=== PATIENT | male | born 1960 | race Caucasian/White ===

== ENCOUNTER 2019-10-30 07:55 | Day surgery (SDC) | payer BC ==
[2019-10-23 15:21] VITALS: BMI 41.5
[~2019-10-30 07:55] MED LIST: LACTATED RINGERS 1,000 ML IV SCH; LIDOCAINE 1% 20 ML VIAL (10MG/ML) FOR IV START INTRADERMA PRN
--- NOTE | 2019-10-30 08:09 | P.GSHP ---
History of Present Illness H&P Date: 10/30/19 CHIEF COMPLAINT: Colon screen HISTORY OF PRESENT ILLNESS: The patient is a 59-year-old male who presents for colon screen. Lower endoscopy was offered for further evaluation and management. PAST MEDICAL HISTORY: Please see list. PAST SURGICAL HISTORY: Please see list. MEDICATIONS: Please see list. ALLERGIES: Please see list. SOCIAL HISTORY: No illicit drug use FAMILY HISTORY: No reports of Crohn disease or ulcerative colitis. REVIEW OF ORGAN SYSTEMS: CONSTITUTIONAL: No reports of fevers or chills. PHYSICAL EXAM: VITAL SIGNS: Stable GENERAL: Well-developed pleasant in no acute distress. HEENT: No scleral icterus. Extraocular movements grossly intact. Moist buccal mucosa. NECK: Supple without lymphadenopathy. CHEST: Unlabored respirations. Equal bilateral excursions. CARDIOVASCULAR: Regular rate and rhythm. Distal 2+ pulses. ABDOMEN: Soft, nontender, nondistended. MUSCULOSKELETAL: No clubbing, cyanosis, or edema. ASSESSMENT: 1. Colon screen. PLAN: 1. Recommend proceeding with a lower endoscopy Past Medical History Past Medical History: Coronary Artery Disease (CAD) Additional Past Medical History / Comment(s): hodgkins lymphoma x2, with metastatic lesions History of Any Multi-Drug Resistant Organisms: None Reported Past Surgical History: Ear Surgery Additional Past Surgical History / Comment(s): Stem cell transplant 2013, abdomInal surgery 2009-BIOPSIES, COLONOSCOPY Past Anesthesia/Blood Transfusion Reactions: No Reported Reaction Smoking Status: Former smoker - Past Family History Mother Additional Family Medical History / Comment(s): open heart with stents 2012 Medications and Allergies Home Medications Medication Instructions Recorded Confirmed Type No Known Home Medications 10/23/19 10/23/19 History Allergies Allergy/AdvReac Type Severity Reaction Status Date / Time furosemide [From Lasix] Allergy Rash/Hives Verified 10/23/19 15:08
[2019-10-30 08:14] VITALS: TEMP 98
[2019-10-30] MEDS ORDERED: PROPOFOL 10 MG/ML 20 ML VIAL IV ONE (08:46)
--- NOTE | 2019-10-30 09:35 | P.PCN ---
Date of Procedure: 10/30/19 Description of Procedure: PREOPERATIVE DIAGNOSIS: Personal history of colon polyps. Colonoscopy screening POSTOPERATIVE DIAGNOSIS: Personal history of colon polyps. Colonoscopy screening Multiple tubular adenomas throughout the colon. External hemorrhoids, grade 2. Sigmoid diverticulosis OPERATION: Colonoscopy to the ileocecal valve and appendiceal orifice. Colonoscopy with multiple hot snare polypectomies Colonoscopy with multiple cold forceps biopsies. SURGEON: Angela Grace MD. ANESTHESIA: MAC. INDICATIONS: The patient is a 59-year-old male who presents for colonoscopy screening. Last colonoscopy 5 years ago. Benefits and risks were described and informed consent was obtained. DESCRIPTION OF PROCEDURE: The patient had undergone Suprep. He had been brought into the operating room and laid in the left lateral decubitus position. After adequate intravenous sedation, the rectum was examined with 2% lidocaine jelly. External hemorrhoids were encountered. The rectal tone was within normal limits. No lesions were palpated in the rectal vault. An Olympus colonoscope was advanced until the ileocecal valve and appendiceal orifice were clearly viewed. The prep was excellent. Sigmoid diverticulosis was encountered. Multiple colonic polyps were found and cold forcep biopsy or snare polypectomy. No evidence of focal colitis was found. Retroflexion of the scope demonstrated grade 1 internal hemorrhoids without active bleeding or inflammation. The colon was desufflated. The patient had tolerated the procedure well. Withdrawal time was over 6 minutes. FINDINGS: Aronchick preparation quality scale 1 (1-5) Internal hemorrhoids, grade 1 External hemorrhoids, grade 2. No arteriovenous malformations. Sigmoid diverticulosis Removal of 15 polyps from the proximal, mid transverse colon and descending colon: - Snare polypectomy 30 cm from the anal verge, 6 mm tubulovillous adenoma polyps. - Snare polypectomy at cecum x 2, 6 and 8 mm tubulovillous adenoma polyps. - Snare polypectomy at mid transverse colon, 8 mm flat villous adenoma polyp. - Snare polypectomy at splenic flexure, 5 mm flat villous adenoma polyp, removed but not retrieved - Snare polypectomy at descending colon, 11 mm flat villous adenoma polyp - Cold forceps biopsy at hepatic flexure x 3, 3 to 5 mm polyps. - Cold forceps biopsy at ascending colon, 5 mm polyp, removed but not retrieved - Cold forceps biopsy at distal transverse colon 2, 4 and 5 mm polyps. No focal colitis. RECOMMENDATIONS: Given severity of tubular adenomas, recommend repeat colonoscopy 6 months March 2020 to 1 yearSeptember 2020. Plan - Discharge Summary Discharge Rx Participant: No New Discharge Prescriptions: No Action No Known Home Medications Discharge Medication List No Known Home Medications 10/23/19 [History] Follow up Appointment(s)/Referral(s): Angela Grace MD [STAFF PHYSICIAN] - 11/12/19 Patient Instructions/Handouts: Colorectal Polyps (DC), Diverticulosis Diet (GEN), Diverticulosis (ED) Activity/Diet/Wound Care/Special Instructions: Repeat colonoscopy 6 months to 1 year, March to September 2020 Discharge Disposition: HOME SELF-CARE
[2019-10-30 10:09] VITALS: BP 126/88; PULSE 72; RESP 18
== END 2019-10-30 10:25 | disposition home or self-care (01) ==
LOC: ORWHC2ENDO 07:55
PROVIDERS: ATTEND Surgery Plastic and Reconstructive Surgery
DX: Z12.11 Encounter for screening for malignant neoplasm of colon (principal); D12.0 Benign neoplasm of cecum; D12.3 Benign neoplasm of transverse colon; D12.4 Benign neoplasm of descending colon; K63.5 Polyp of colon; Z86.010 Personal history of colon polyps; K64.1 Second degree hemorrhoids; K57.30 Diverticulosis of large intestine without perforation or abscess without bleeding; K64.0 First degree hemorrhoids; I25.10 Atherosclerotic heart disease of native coronary artery without angina pectoris; E66.01 Morbid (severe) obesity due to excess calories; Z85.71 Personal history of Hodgkin lymphoma; Z98.890 Other specified postprocedural states; Z94.84 Stem cells transplant status; Z87.891 Personal history of nicotine dependence; Z87.19 Personal history of other diseases of the digestive system; Z88.8 Allergy status to other drugs, medicaments and biological substances; Z88.2 Allergy status to sulfonamides; Z68.41 Body mass index [BMI] 40.0-44.9, adult
CPT/HCPCS: 88305; 45380; 45385; J2704

== ENCOUNTER 2021-11-24 08:13 | Day surgery (SDC) | payer BC ==
[2021-11-22 09:56] VITALS: BMI 43.4
[~2021-11-24 08:13] MED LIST changes: +LIDOCAINE 1% (10MG/ML) FOR IV START INTRADERMA PRN; -LIDOCAINE 1% 20 ML VIAL (10MG/ML) FOR IV START INTRADERMA PRN
[2021-11-24 09:22] VITALS: TEMP 97.4
[2021-11-24] MEDS ORDERED: PROPOFOL 10 MG/ML 20 ML VIAL IV ONE (09:49)
[2021-11-24] MEDS ORDERED: LIDOCAINE 1% INJ 10MG/ML (20 ML MDV) ONE (09:49)
--- NOTE | 2021-11-24 10:22 | P.PCN ---
Date of Procedure: 11/24/21 Procedure(s) Performed: BRIEF HISTORY: Patient is a 61-year-old pleasant white male scheduled for an elective colonoscopy as a part of prior history of colon polyps. His last colonoscopy was in [address] Uriarte was noted to have multiple colon polyps most of which revealed adenoma. PROCEDURE PERFORMED: Colonoscopy with snare polypectomy. And tattooing with Mary. PREOPERATIVE DIAGNOSIS: History of colon polyps. IV sedation per Anesthesia. PROCEDURE: After informed consent was obtained, the patient, was brought into the endoscopy unit. IV sedation was administered by Anesthesia under continuous monitoring. Digital rectal examination was normal. Initially the Olympus CF-160 flexible video colonoscope was then inserted in the rectum, gradually advanced into the cecum without any difficulty. Careful examination was performed as the scope was gradually being withdrawn. Ileocecal valve and the appendiceal orifice were visualized and appeared normal. Prep was fair. In the base of the cecum there were 2 polyps measuring 5 and 6 mm in size removed by snare polypectomy. In the ascending colon there was a 7 mm flat polyp removed by snare polypectomy. In the transverse colon closer to the hepatic flexure there was a 2.5 cm broad- based polyp that was removed by piecemeal snare polypectomy and only partial polypectomy was performed. Tattooing with Mary ink was performed as the localized polyps. Rest of the polyp could not be removed. At this time tattooing with Mary ink was performed. In the descending colon there were 4 polyps measuring 5 mm and 7 mm in size removed by snare polypectomy. The sigmoid colon and rectum appeared normal. Retroflexion was performed in the rectum and no lesions were seen. The patient tolerated the procedure well. IMPRESSION: 5 mm and 6 cm cecal polyp status post polypectomy 7 mm flat ascending colon polyp serous posterior polypectomy 2.5 cm broad-based polyp in the proximal transverse colon just distal to the hepatic flexure status post partial snare polypectomy followed by tattooing with Mary ink 4 polyps in the descending colon measuring between 5 and 6 mm in size removed by snare polypectomy. RECOMMENDATIONS: Findings of this examination were discussed with the patient as well as his family. He was advised to follow with the biopsy results. He'll be seen in office in one to 2 weeks and based the biopsy results will plan a repeat colonoscopy in 3 to 6 months..
[2021-11-24 10:25] VITALS: RESP 16
[2021-11-24 10:41] VITALS: BP 141/85; PULSE 73
== END 2021-11-24 11:07 | disposition home or self-care (01) ==
LOC: ORWHC2ENDO 08:13
PROVIDERS: ATTEND Internal Medicine Gastroenterology
DX: D12.3 Benign neoplasm of transverse colon (principal); D12.2 Benign neoplasm of ascending colon; D12.4 Benign neoplasm of descending colon; Z86.010 Personal history of colon polyps
CPT/HCPCS: 45385; 44404; J2001; J2704; 88305